=== PATIENT | female | born 1955 | race Caucasian/White ===

== ENCOUNTER → 2016-09-17 | Outpatient (CLI) | payer BC ==
[~2016-09-17] MED LIST: IBUP-103 PO; SUMA100T16 PO
--- NOTE | 2016-09-17 12:37 | MAMMOGRAPHY REPORT ---
BILATERAL DIGITAL DIAGNOSTIC MAMMOGRAM TOMOSYNTHESIS WITH CAD AND TARGETED RIGHT ULTRASOUND: 7 CLINICAL HISTORY: The patient reports a possible palpable lump in the right breast. TECHNIQUE: Breast tomosynthesis in addition to standard 2D mammography was performed. Current study was also evaluated with a Computer Aided Detection (CAD) system. Bilateral CC and MLO 2-D and evgeny synthesis images were obtained. COMPARISON: Comparison is made to exams dated: 10/09/2013 mammogram, 10/16/2013 ultrasound, 10/16/2013 mammogram, 10/31/2010 mammogram, 10/31/2010 ultrasound, and 10/27/2010 mammogram - [facility]. BREAST COMPOSITION: The tissue of both breasts is heterogeneously dense, which may obscure small ma sses. FINDINGS: A triangle marker jarquin the site of the palpable lump in the right lower inner quadrant. There is a round circumscribed 9 mm mass seen within the right 6:00 breast, which is stable compared to the October 2013 exam. A small cluster of calcifications is seen within the mass, which were show n to layer on the October 2013 spot magnification views consistent with calcifications layering within a cyst. The remainder of both breasts are stable compared to prior exams, without suspicious nata s, calcifications, or areas of architectural distortion noted. Targeted ultrasound was performed of the area of the palpable lump pointed out by the patient, in th e right breast at 6:00, 4 cm from the nipple. At the site of the palpable lump there is an oval cir cumscribed anechoic mass which measures 7 x 5 x 7 mm. An echogenic focus is seen within the cyst, w hich corresponds with the layering calcifications seen mammographically. This corresponds with the stable mammographic mass and is consistent with a benign simple cyst. No suspicious solid masses we re evident. IMPRESSION: ACR BI-RADS CATEGORY 2: BENIGN, TARGETED ULTRASOUND ACR BI-RADS CATEGORY 2: BENIGN The palpable lump in the right 6:00 breast corresponds with a benign 7 mm simple cyst, which has bee n stable dating back to the October 2013 exam. There is no mammographic or targeted sonographic evide nce of malignancy. Recommend clinical follow-up for the right breast palpable lump, and recommend r outine bilateral screening mammograms in one year. The patient has been verbally notified of the re sults. Approximately 10% of breast cancers are not detected with mammography. A negative mammographic repor t should not delay biopsy if a clinically suggestive mass is present. Asia Gage M.D. ah/:09/17/2016 10:01:17 Professional Development Instructor: Tahira DEL TORO)([place]), [facility] letter sent: Normal 1/2 BI-RADS Code: ACR BI-RADS Category 2: Benign Ultrasound BI-RADS: ACR BI-RADS Category 2: Benign
== END | disposition home or self-care (01) ==
LOC: C.MAMM 09:28
PROVIDERS: ATTEND Internal Medicine
DX: N63 Unspecified lump in breast (principal); N60.01 Solitary cyst of right breast

== ENCOUNTER → 2018-02-28 | Outpatient (CLI) | payer BC ==
[2018-02-28 13:30] LABS: ALBUMIN 4.1 gm/dl (3.4-5.0); ALKALINE PHOSPHATASE 68 U/L (45-117); ALT/SGPT 23 U/L (12-78); AST/SGOT 20 U/L (15-37); BLOOD UREA NITROGEN 14 mg/dl (7-18); CALCIUM 8.7 mg/dl (8.5-10.1); CARBON DIOXIDE 26 mmol/L (21-32); CHOLESTEROL 203 mg/dl (0-200); CREATININE 0.79 mg/dl (0.60-1.20); GLUCOSE 82 mg/dl (70-99); LDL CHOLESTEROL CALCULATED 119 mg/dl; POTASSIUM 3.9 mmol/L (3.5-5.1); SODIUM 137 mmol/L (136-145); TOTAL PROTEIN 7.2 gm/dl (6.4-8.2)
[2018-03-01 06:42] LABS: HEMOGLOBIN A1C 5.2 % (4.5-5.6)
== END | disposition home or self-care (01) ==
LOC: C.LABBC 10:52
PROVIDERS: ATTEND Nurse Practitioner
DX: Z00.00 Encounter for general adult medical examination without abnormal findings (principal)

== ENCOUNTER → 2018-04-01 | Outpatient (CLI) | payer BC ==
--- NOTE | 2018-04-01 14:31 | MAMMOGRAPHY REPORT ---
BILATERAL DIGITAL DIAGNOSTIC MAMMOGRAM TOMOSYNTHESIS WITH CAD AND RIGHT ULTRASOUND: 04/01/2018 CLINICAL HISTORY: The patient reports that the palpable right breast lump which she has previously fe lt may feel slightly larger in size. TECHNIQUE: Breast tomosynthesis in addition to standard 2D mammography was performed. Current study w as also evaluated with a Computer Aided Detection (CAD) system. Bilateral CC and MLO 2D and tomosynt hesis images and spot magnification right cc and ML views were obtained. COMPARISON: Comparison is made to exams dated: 09/17/2016 mammogram, 09/17/2016 ultrasound, 10/16/2013 ma mmogram, 10/09/2013 mammogram, 10/27/2010 mammogram, and 04/24/2002 mammogram - [facility]. BREAST COMPOSITION: The tissue of both breasts is heterogeneously dense, which may obscure small mass es. FINDINGS: A triangle marker was placed at the site of the palpable lump pointed out by the patient in the right 6:00 breast. At the site of the triangle marker there is a non-circumscribed 10 mm mass in the righ t 6:00 posterior breast with associated internal calcifications. The mass does not appear significan tly changed in size compared to the prior exams although the margins are less circumscribed than they were previously and therefore it is difficult to compare size mammographically. The calcifications are not clearly layering on the current exam, however, calcifications were shown to layer on the prio r ML views from the October 2013 exam. The remainder of both breasts are stable compared to prior exam s, without suspicious masses, calcifications, or areas of architectural distortion noted. Targeted ultrasound was performed of the area of the palpable lump pointed out by the patient, in the right 6:00 breast, approximately 3 cm from the nipple. At the site of the palpable lump there is an oval circumscribed mass with posterior acoustic enhancement, measuring 7 x 6 x 7 mm. Internal echog enic foci are seen within the mass, which corresponds with the mammographic calcifications. The mass does not appear significantly changed in size dating back to the October 2013 exam where the mass sedrick ured 8 mm on ultrasound. Although this has the appearance of a simple cyst, given that the lump is p ersistently palpable to the patient and given that the margins are not completely circumscribed on e current exam, I would recommend ultrasound-guided aspiration for further evaluation. IMPRESSION: ACR BI-RADS CATEGORY 4: SUSPICIOUS, ULTRASOUND ACR BI-RADS CATEGORY 4: SUSPICIOUS 1. Ultrasound-guided aspiration is recommended for the palpable cystic 7 mm mass and associated calci fications in the right 6:00 breast. Also recommend sending the aspirated fluid to cytology for analys is. 2. No mammographic evidence of malignancy in the left breast. A phone call was made to the physician's office to confirm faxed results were received. The patient has been verbally notified of the results. She tentatively scheduled the procedure befor e leaving the department. Some breast cancers are not detected with mammography. A negative mammographic report should not shaheen y biopsy if a clinically suggestive mass is present. Asia Gage M.D. ah/:04/01/2018 12:14:55 Side Seam Envelope Machine Operator: RT Andry(R)(M), [facility]; Asia Gage MD, [facility] letter sent: Abnormal 4/5 OVERALL STUDY BIRADS: 4 Suspicious abnormality
== END | disposition home or self-care (01) ==
LOC: C.MAMM 10:26
PROVIDERS: ATTEND Nurse Practitioner Family
DX: N63.10 Unspecified lump in the right breast, unspecified quadrant (principal)

== ENCOUNTER → 2018-04-05 | Outpatient (CLI) | payer BC ==
--- NOTE | 2018-04-05 14:49 | MAMMOGRAPHY REPORT ---
ASPIRATION RIGHT BREAST: 04/05/2018 CLINICAL HISTORY: Right 6:00 cyst with associated internal calcifications. PATIENT CONSENT: The procedure and risks of ultrasound-guided cyst aspiration were discussed in full with the patient. Both oral and written consents were obtained. PROCEDURE DESCRIPTION: With ultrasound guidance, aseptic technique, and 1% lidocaine as a local anest hetic, the mass of concern in the right 6:00 breast was aspirated to completion, using a 22-gauge nee dle attached to a syringe. A small amount of yellowbrown fluid was aspirated and sent to cytology f or analysis. Direct pressure was applied to the site immediately post procedure and hemostasis was a chieved. The patient tolerated the procedure without complication. She was given wound care instruc tions. COMPARISON: Comparison is made to exams dated: 04/01/2018 ultrasound, 09/17/2016 ultrasound, 04/01/2018 mammogram, 09/17/2016 mammogram, 10/16/2013 ultrasound, and 10/16/2013 mammogram - [facility]. IMPRESSION: ASPIRATION Ultrasound-guided aspiration of the palpable cyst in the right 6:00 breast. The aspirated fluid was sent to cytology for analysis. The patient will receive cytology results from her referring provider . If cytology results are benign, recommend follow-up diagnostic tomosynthesis mammograms and possib le ultrasound of the right breast in 6 months. Asia Gage M.D. /:04/05/2018 14:10:00 Process Control Tech: RT Teetee(R)(M), [facility]
== END | disposition home or self-care (01) ==
LOC: C.MAMM 13:40
PROVIDERS: ATTEND Nurse Practitioner Family
DX: R92.8 Other abnormal and inconclusive findings on diagnostic imaging of breast (principal); N63.10 Unspecified lump in the right breast, unspecified quadrant